=== PATIENT | female | born 1990 ===

== ENCOUNTER 2016-10-22 17:56 | Emergency (ER) | payer MEDICAID ==
[2016-10-22 18:05] VITALS: RESP 18
--- NOTE | 2016-10-22 18:22 | C.PDOC ---
History Of Present Illness 25 year old patient, with a past medical history of asthma, presents to the ED complaining of chest pain upon inspiration since yesterday. Patient has left sided chest pain radiating to the back. Patient states the pain is constant. Patient smokes cigarettes regularly. Patient denies sick contact, fever, cough, wheezing, medication use, palpitations, headache, dizziness, nausea, vomiting, shortness of breath, trauma, travel, or hospitalization. Time Seen by Provider: 10/22/16 18:11 Chief Complaint (Nursing): Chest Pain History Per: Patient History/Exam Limitations: no limitations Onset/Duration Of Symptoms: Days (1) Current Symptoms Are (Timing): Still Present Context: Other Severity: Mild Pain Scale Rating Of: 2 Quality: "Pain" Exacerbating Factors: Other (inspiration) Alleviating Factors: None Recent travel outside of the [place]: No Past Medical History Reviewed: Historical Data, Nursing Documentation, Vital Signs Vital Signs: Last Vital Signs Temp 98 F 10/22/16 20:28 Pulse 64 10/22/16 20:28 Resp 18 10/22/16 20:28 BP 105/68 10/22/16 20:28 Pulse Ox 100 10/22/16 20:28 - Medical History PMH: Asthma Family History: States: Unknown Family Hx - Social History Hx Alcohol Use: No Hx Substance Use: No - Immunization History Hx Tetanus Toxoid Vaccination: No Hx Influenza Vaccination: No Hx Pneumococcal Vaccination: No Review Of Systems Except As Marked, All Systems Reviewed And Found Negative. Constitutional: Negative for: Fever Cardiovascular: Positive for: Chest Pain. Negative for: Palpitations Respiratory: Negative for: Cough, Shortness of Breath, Wheezing Gastrointestinal: Negative for: Nausea, Vomiting Musculoskeletal: Positive for: Back Pain Neurological: Negative for: Headache, Dizziness Physical Exam - Physical Exam Appears: Non-toxic, No Acute Distress Skin: Warm, Dry Head: Atraumatic, Normacephalic Eye(s): bilateral: Normal Inspection, PERRL, EOMI Oral Mucosa: Moist Throat: Normal Neck: Normal ROM, Supple Chest: Symmetrical, No Tenderness Cardiovascular: Rhythm Regular Respiratory: Normal Breath Sounds, No Rales, No Rhonchi, No Wheezing Gastrointestinal/Abdominal: Soft, No Tenderness Back: Normal Inspection, No CVA Tenderness Extremity: Normal ROM Neurological/Psych: Oriented x3, Normal Speech, Normal Cognition, Normal Motor, Normal Sensation Gait: Steady ED Course And Treatment - Laboratory Results Result Diagrams: 10/22/16 19:38 10/22/16 19:00 O2 Sat by Pulse Oximetry: 99 (RA) Pulse Ox Interpretation: Normal Medical Decision Making Medical Decision Making: Plan: * Labs * Chest X-ray * Toradol Chest XR: No acute findings pt reported improvement after toradol I disc w her test results, plan for f/u, and rtr Disposition - Disposition Referrals: [facility] [Outside] Disposition: HOME/ ROUTINE Disposition Time: 20:16 Condition: GOOD Additional Instructions: Please follow up with your doctor this week. Return to the ER for any worsening symptoms or for any other concerns. Prescriptions: Naproxen 500 mg PO Q12H PRN #10 ect PRN Reason: pain Instructions: Chest Wall Pain (ED) Forms: General Discharge Instructions - Clinical Impression Clinical Impression: Chest pain - Scribe Statement The provider has reviewed the documentation as recorded by the Scribe Cheyenne Mcintyre Provider Attestation: All medical record entries made by the Scribe were at my direction and personally dictated by me. I have reviewed the chart and agree that the record accurately reflects my personal performance of the history, physical exam, medical decision making, and the department course for this patient. I have also personally directed, reviewed, and agree with the discharge instructions and disposition.
[2016-10-22 19:12] LABS: CHLORIDE 98 mmol/L (98-107); POTASSIUM 3.9 mmol/L (3.6-5.2); SODIUM 140 mmol/L (132-148)
[2016-10-22 19:15] LABS: ALB/GLOB RATIO 1.2 (1.0-2.1); ALKALINE PHOSPHATASE 55 U/L (38-126); ALT/SGPT 18 U/L (9-52); AST/SGOT 25 U/L (14-36); BILIRUBIN,TOTAL 0.5 mg/dL (0.2-1.3); BLOOD UREA NITROGEN 13 mg/dL (7-17); CARBON DIOXIDE 26 mmol/L (22-30); GFR AFRICAN-AMERICAN > 60; GLUCOSE,RANDOM 88 mg/dL (65-105); TOTAL PROTEIN 8.2 g/dL (6.3-8.3)
[2016-10-22 19:16] LABS: CALCIUM 9.1 mg/dl (8.6-10.4)
[2016-10-22 19:42] LABS: BASO % 0.4 % (0.0-2.0); EOS # 0.1 K/uL (0.0-0.7); EOS % 1.4 % (0.0-4.0); LYMPH # 1.8 K/uL (1.0-4.3); LYMPH % 22.1 % (20.0-40.0); MEAN CELL VOLUME 91.4 fL (81.0-99.0); MEAN CORPUSCULAR HEMOGLOBIN 30.8 pg (27.0-31.0); MEAN CORPUSCULAR HGB CONC 33.7 g/dL (33.0-37.0); MEAN PLATELET VOLUME 8.7 fL (7.2-11.7); MONO # 0.7 K/uL (0.0-0.8); MONO % 8.6 % (0.0-10.0); RED CELL DISTRIBUTION WIDTH 12.7 % (11.5-14.5); WHITE BLOOD COUNT 8.4 K/uL (4.8-10.8)
[2016-10-22 20:30] VITALS: BP 105/68; PULSE 64; TEMP 98
[2016-10-22 23:59] VITALS: O2SAT 99
--- NOTE | 2016-10-23 09:02 | RAD ---
HISTORY: Chest pain COMPARISON: No prior. TECHNIQUE: Chest PA and lateral FINDINGS: LUNGS: No active pulmonary disease. PLEURA: No significant pleural effusion identified. No pneumothorax apparent. CARDIOVASCULAR: Normal. OSSEOUS STRUCTURES: No significant abnormalities. VISUALIZED UPPER ABDOMEN: Normal. OTHER FINDINGS: None. IMPRESSION: No active disease.
== END 2016-10-22 20:30 | disposition home or self-care (01) ==
LOC: C.ER 17:56
DX: R07.9 Chest pain, unspecified (principal)
CPT/HCPCS: 71020; 80053; 85025; 85378; 96374; 99285; J1885

== ENCOUNTER 2017-05-25 11:31 | Emergency (ER) | payer MEDICAID ==
[2017-05-25 11:45] VITALS: BP 117/77; PULSE 82; RESP 18; TEMP 97.8; O2SAT 99
--- NOTE | 2017-05-25 12:08 | C.PDOC ---
History Of Present Illness 26 y/o female c/o sores that come and go in her mouth for the last 2 weeks, started after sharing a joint with some other people. pt reports sores on the insides of lips, no swelling, no fever or chills. no hx hsv1. Time Seen by Provider: 05/25/17 11:51 Chief Complaint (Nursing): Dental Pain History Per: Patient History/Exam Limitations: no limitations Onset/Duration Of Symptoms: Days (14) Current Symptoms Are (Timing): Worse Severity: Moderate Pain Scale Rating Of: 7 Quality: Positive for: "Pain" Past Medical History Reviewed: Historical Data, Nursing Documentation, Vital Signs Vital Signs: Last Vital Signs Temp 97.8 F 05/25/17 11:42 Pulse 82 05/25/17 11:42 Resp 18 05/25/17 11:42 BP 117/77 05/25/17 11:42 Pulse Ox 99 05/29/17 06:02 - Medical History PMH: Asthma Family History: States: Unknown Family Hx - Social History Hx Alcohol Use: No Hx Substance Use: Yes - Immunization History Hx Tetanus Toxoid Vaccination: No Hx Influenza Vaccination: No Hx Pneumococcal Vaccination: No Review Of Systems Constitutional: Negative for: Fever, Chills Cardiovascular: Negative for: Chest Pain Gastrointestinal: Negative for: Vomiting, Abdominal Pain Skin: Positive for: Lesions (inside lips) Physical Exam - Physical Exam Appears: Non-toxic, Other (mildly anxious) Skin: Rash (several whitish 1-2 mm raised bumps inside lips upper and lower, none on buccal surfaces. no swelling noted. no ulcerated lesions noted. ) Nose: No Discharge Oral Mucosa: Moist Tongue: Normal Appearing Lips: Normal Appearing (external) Teeth: Normal Dentition Gingiva: Normal Appearing, No Ulceration Throat: No Erythema, No Exudate Neck: Supple ED Course And Treatment O2 Sat by Pulse Oximetry: 99 Medical Decision Making Medical Decision Making: discussed with patient not to share joints, drinking glasses, etc with others, f /u dental if lesions not resolved with peridex. Disposition Counseled Patient/Family Regarding: Need For Followup, Rx Given - Disposition Referrals: Latesha Parikh MD [IM] - Disposition: HOME/ ROUTINE Disposition Time: 12:06 Condition: STABLE Additional Instructions: Please use Peridex as prescribed. If sores in mouth do not heal in a few days. recommend that you follow up with dentist and your pmd. Return for increasing sores, difficulty swallowing, fever or any other concerning symptoms Recommend you do not share anything by mouth with others until this clears up. Prescriptions: Chlorhexidine 0.12% [Peridex] 15 ml MM BID #1 bottle Forms: [employer] ([place]ish), General Discharge Instructions - Clinical Impression Clinical Impression: Mucosal irritation of oral cavity
== END 2017-05-25 12:18 | disposition home or self-care (01) ==
LOC: C.ER 11:31
DX: K13.0 Diseases of lips (principal)